=== PATIENT | female | born 1980 | race Caucasian/White ===

== ENCOUNTER 2017-05-28 11:41 | Day surgery (SDC) | payer BC ==
[~2017-05-28 11:41] MED LIST: Lactated Ringers 1,000 ML IV SCH; Midazolam 1 MG/ML 2 ML SDV ONE; Propofol 200 MG/20 ML SDV ONE; fentaNYL 100 MCG/2 ML SDV ONE
--- NOTE | 2017-05-28 12:10 | PCM.PREANE ---
Preanesthetic Assessment - Anesthesia/Transfusion/Family Hx Anesthesia History: Prior Anesthesia Without Reaction Other Type of Anesthesia Reaction Comment: DENIES ANY PROBLEMS WITH ANESTHESIA Family History of Anesthesia Reaction: No Transfusion History: No Prior Transfusion(s) - Review of Systems General: No Symptoms Pulmonary: No Symptoms Cardiovascular: No Symptoms Neurological: No Symptoms Other: Reports: None - Physical Assessment NPO Status Date: 05/27/17 Height: 1.63 m Weight: 102.058 kg ASA Class: 2 Mental Status: Alert & Oriented x3 Airway Class: Mallampati = 1 Dentition: Reports: Normal Dentition ROM/Head Extension: Full Lungs: Clear to Auscultation, Normal Respiratory Effort Cardiovascular: Regular Rate, Regular Rhythm - Allergies Allergies/Adverse Reactions: Allergies Allergy/AdvReac Type Severity Reaction Status Date / Time Penicillins Allergy Unknown Hives Verified 05/25/17 10:56 amoxicillin Allergy Hives Verified 05/25/17 10:56 ethinyl estradiol Allergy Hives Verified 05/25/17 10:56 [From Ortho Tri-Cyclen (28)] norgestimate Allergy Hives Verified 05/25/17 10:56 [From Ortho Tri-Cyclen (28)] - Anesthesia Plan Pre-Op Medication Ordered: None - Acknowledgements Anesthesia Type Planned: MAC Pt an Appropriate Candidate for the Planned Anesthesia: Yes Alternatives and Risks of Anesthesia Discussed w Pt/Guardian: Yes Pt/Guardian Understands and Agrees with Anesthesia Plan: Yes PreAnesthesia Questionnaire HEENT History: Reports: None Cardiovascular History: Reports: None Respiratory History: Reports: None Gastrointestinal History: Reports: GERD, Irritable Bowel Syndrome Other Gastrointestinal History: Heartburn/GERD treat with OTC Zantac and Maalox , prn Genitourinary History: Reports: UTI, Recurrent 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 , , 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 Other OB/BYN History: hx: 7 spontaneous abortions Musculoskeletal History: Reports: Back Pain, Chronic 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, 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 Neurological History: Reports: Seizure, Other (See Below) Other Neuro History: hx of removal of brain tumor in 2004, no seizures since then Psychiatric History: Reports: Anxiety, Depression Endocrine/Metabolic History: Reports: Obesity/BMI 30+, Other (See Below) Other Endocrine/Metabolic History: "prediabetic" Hematologic History: Reports: None Immunologic History: Reports: None Oncologic (Cancer) History: Reports: None Dermatologic History: Reports: Psoriasis, Other (See Below) Other Dermatologic History: acne - Past Surgical History GI Surgical History: Reports: Cholecystectomy, EGD Female Surgical History: Reports: D&C, Other (See Below) Other Female Surgeries/Procedures: laparoscopic exc of ectopic with left S&O Other Neurological Surgeries/Procedures: 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 - SUBSTANCE USE Smoking Status *Q: Current Every Day Smoker Tobacco Use Within Last Twelve Months: Cigarettes Other Tobacco Use Within Last Twelve Months: Trying to Cut back...down to 3-4 cigarettes per day, 15 yrs of smoking Second Hand Smoke Exposure: Yes Days Per Week of Alcohol Use: 0 Number of Drinks Per Day: 0 Total Drinks Per Week: 0 Recreational Drug Use History: No - HOME MEDS Home Medications: Home Meds Clindamycin Phosphate [Cleocin T 1% Gel] 1 applic TOP ASDIRECTED PRN 05/25/17 [ History] Butler Tar [Psoriasin] 1 applic TOP ASDIRECTED PRN 05/25/17 [History] Diclofenac Sodium [Voltaren] 1 applic TOP ASDIRECTED PRN 05/25/17 [History] Etonogestrel [Nexplanon] 1 device IMPLANT ONETIME 05/25/17 [History] Spironolactone 50 mg PO DAILY 05/25/17 [History] Triamcinolone Acetonide [IJD: Triamcinolone Acetonide 0.1% Crm] 1 applic TOP ASDIRECTED 05/25/17 [History] - CURRENT (IN HOUSE) MEDS Current Meds: Current Medications Lactated Ringer's (Ringers, Lactated) 1,000 mls @ 125 mls/hr IV ASDIRECTED [facility], [facility] Last Admin: 05/28/17 12:03 Dose: 125 mls/hr Discontinued Medications Fentanyl (Sublimaze) Confirm Administered Dose 100 mcg .ROUTE .STK-MED ONE Stop: 05/28/17 08:41 Midazolam HCl (Versed 1 Mg/Ml) Confirm Administered Dose 2 mg .ROUTE .STK-MED ONE Stop: 05/28/17 08:41 Propofol (Diprivan 20 Ml) Confirm Administered Dose 200 mg .ROUTE .STK-MED ONE Stop: 05/28/17 08:41
[2017-05-28] MEDS ORDERED: Propofol 200 MG/20 ML SDV ONE (12:24)
--- NOTE | 2017-05-28 12:46 | PCM.OPNOTE ---
- General Post-Op/Procedure Note Date of Surgery/Procedure: 05/28/17 Operative Procedure(s): egd w bx. colonoscopy w random bx Findings: see dict [id number] Pre Op Diagnosis: gerd and abd pain Post-Op Diagnosis: Same Anesthesia Technique: Moderate Sedation Primary Surgeon: Peter Whaley Pathology: egd bx and colon random bx Complications: None Condition: Good
--- NOTE | 2017-05-28 13:00 | PCM.POSTAN ---
POST ANESTHESIA ASSESSMENT - MENTAL STATUS Mental Status: Alert, Oriented - RESPIRATORY Respiratory Status: Respiratory Rate WNL, Airway Patent, O2 Saturation Stable - CARDIOVASCULAR CV Status: Pulse Rate WNL, Blood Pressure Stable - GASTROINTESTINAL GI Status: No Symptoms - POST OP HYDRATION Hydration Status: Adequate & Stable
--- NOTE | 2017-05-28 13:00 | PCM48HPAN ---
Post Anesthesia Note - EVALUATION WITHIN 48HRS OF ANESTHETIC Vital Signs in Normal Range: Yes Patient Participated in Evaluation: Yes Respiratory Function Stable: Yes Airway Patent: Yes Cardiovascular Function Stable: Yes Hydration Status Stable: Yes Pain Control Satisfactory: Yes Nausea and Vomiting Control Satisfactory: Yes Mental Status Recovered: Yes Resp Rate: 17
[2017-05-28 13:46] VITALS: BP 113/57
--- NOTE | 2017-05-28 20:13 | OR ---
SURGEON: Peter Whaley MD DATE OF PROCEDURE: 05/28/2017 PREOPERATIVE DIAGNOSIS: Abdominal pain and gastroesophageal reflux disease. POSTOPERATIVE DIAGNOSES: 1. Esophagogastroduodenoscopy diagnosis: Gastroesophageal reflux disease. 2. Colonoscopy diagnosis: Internal hemorrhoids. PROCEDURE PERFORMED: Esophagogastroduodenoscopy with biopsy and colonoscopy with biopsy. DESCRIPTION OF PROCEDURE: EGD: The patient was taken to the endoscopy room, and with the MANAGER CT, Diprivan was administered. A well-lubricated EGD scope was gently inserted through the oropharynx, down the esophagus, passing through the gastroesophageal junction, into the stomach. The mucosa was examined upon the passage. Any etiology will be noted. Once in the stomach, we continued to advance to the distal antrum, passed through the pylorus into the second portion of the duodenum. Again, the mucosa was examined for any abnormality and etiology. The scope was then retrieved back to the stomach and then retroflexed to look at the fundus of the stomach. If a biopsy was indicated, we will biopsy the antrum, body, and gastroesophageal junction. The air will be sucked out while the scope is retrieved to reduce the patient's discomfort. The patient tolerated the procedure well. There were no intraoperative complications. Dr. Whaley was present through the whole procedure. Prior to surgery, a time-out had been called, the patient identified, procedure identified and antibiotic administered. COLONOSCOPY: The patient was taken to the endoscopy room. A time out was called, patient identified, and procedure identified. Diprivan was then administrated. Patient went from awake to sleep, hearing doctor talking or door closing is normal. Perineum inspection and digital examination were then performed. A well-lubricated colonoscope was gently inserted through the rectum, advanced past the rectosigmoid junction, the descending colon, splenic flexure, transverse colon, hepatic flexure, ascending colon, arrived to the cecum. Cecum was identified as dictated in the finding. Then the scope was carefully withdrawn while attention was paid to the mucosal surface for any abnormality. Air will be sucked out during the scope withdrawal. At the rectum, retroflexed to examine any rectal diseases, fistula or hemorrhoids. During mucosal examination, picture taken and biopsy performed. Patient tolerated procedure well. There were no intraoperative complications, and Dr. Whaley was present throughout the whole procedure. EGD FINDINGS: 1. The patient is easily sedated with MANAGER CT and Diprivan. The patient is soundly snoring. 2. Oropharynx and proximal esophagus are free of disease, inflammation, or stricture; and distal esophagus at the GE junction at 35 shows a mild salmon-colored change consistent with acid reflux and GERD. Stomach rugae are normal in appearance and there is bile in the stomach and no blood or food particle. Antrum is mildly inflamed. Duodenum is grossly normal in appearance. The scope retrieved back to the stomach and retroflexed to look at the fundus of the stomach. There was no hiatal hernia. Biopsy done at antrum, body, GE junction at 40, and sucked out the air while scope pulling out. COLONOSCOPY FINDINGS: 1. The patient is easily sedated with MANAGER CT and Diprivan. The patient is soundly snoring. 2. Bowel prep is average with a moderate amount of liquid stool compromised the study requiring constant irrigation. Colon rather straight forward. Cecum indicated by ileocecal fold, one-to-one indentation, and appendiceal orifice. Light emittance is not observed. Mucosa examined upon scope pulling out. Random biopsy was done for abdominal pain. The patient does have internal hemorrhoids, no external hemorrhoids. No diverticulosis, polyp, mass, growth, inflammation, AV malformation, blood, ulceration, none of those. The patient would benefit from a repeat colonoscopy 10 years from today or if biopsy turned otherwise or clinically indicated otherwise. FRANK / FAY /[id number] DENISE
== END 2017-05-28 13:10 | disposition home or self-care (01) ==
LOC: MW.SDS 11:41
PROVIDERS: ATTEND Surgery
DX: K29.50 Unspecified chronic gastritis without bleeding (principal); K20.9 Esophagitis, unspecified; K64.8 Other hemorrhoids; K58.9 Irritable bowel syndrome, unspecified; J30.9 Allergic rhinitis, unspecified; F41.9 Anxiety disorder, unspecified; F32.9 Major depressive disorder, single episode, unspecified; R73.03 Prediabetes; L40.9 Psoriasis, unspecified; E66.9 Obesity, unspecified; Z68.38 Body mass index [BMI] 38.0-38.9, adult; Z79.899 Other long term (current) drug therapy; Z88.0 Allergy status to penicillin; Z88.1 Allergy status to other antibiotic agents; Z88.8 Allergy status to other drugs, medicaments and biological substances; Z90.49 Acquired absence of other specified parts of digestive tract; Z90.721 Acquired absence of ovaries, unilateral; Z98.890 Other specified postprocedural states
CPT/HCPCS: 43239; 45380; 81025; 88305; 88312; J2250; J3010; J7120; 00813; J2704

== ENCOUNTER 2019-01-20 06:47 | Emergency (ER) | payer BC ==
[2019-01-20] MEDS ORDERED: Lidocaine 1% with EPINEPHrine 1:100,000 10 ML MDV INJECT ONE (07:34)
[2019-01-20] MEDS ORDERED: Lidocaine 1% with EPINEPHrine 1:100,000 20 ML MDV INJECT ONE (07:37)
[2019-01-20] MEDS ORDERED: Ertapenem 1 GM Vial IM SCH (07:45)
--- NOTE | 2019-01-20 08:14 | EDM.PDOC ---
ED HPI GENERAL MEDICAL PROBLEM - General Chief Complaint: Skin Complaint Stated Complaint: BOIL UNDER LEFT ARMPIT Time Seen by Provider: 01/20/19 08:14 Source of Information: Reports: Patient - History of Present Illness INITIAL COMMENTS - FREE TEXT/NARRATIVE: HISTORY AND PHYSICAL: History of present illness: [Patient presents with abscess and cellulitis in the left axilla area, small area of induration 3-4 cm in diameter with central exudate, exudate expressed with lateral pressure culture obtained, cellulitis was demarcated approximately palm size no fever nausea vomiting chills sweats pain is 8 out of 10] Review of systems: As per history of present illness and below otherwise all systems reviewed and negative. Past medical history: As per history of present illness and as reviewed below otherwise noncontributory. Surgical history: As per history of present illness and as reviewed below otherwise noncontributory. Social history: No reported history of drug or alcohol abuse. Family history: As per history of present illness and as reviewed below otherwise noncontributory. Physical exam: HEENT: Atraumatic, normocephalic, pupils reactive, negative for conjunctival pallor or scleral icterus, mucous membranes moist, throat clear, neck supple, nontender, trachea midline. Lungs: Clear to auscultation, breath sounds equal bilaterally, chest nontender. Heart: S1S2, regular, negative for clicks, rubs, or JVD. Abdomen: Soft, nondistended, nontender. Negative for masses or hepatosplenomegaly. Negative for costovertebral tenderness. Pelvis: Stable nontender. Genitourinary: Deferred. Rectal: Deferred. Extremities: Atraumatic, negative for cords or calf pain. Neurovascular unremarkable. Neuro: Awake, alert, oriented. Cranial nerves II through XII unremarkable. Cerebellum unremarkable. Motor and sensory unremarkable throughout. Exam nonfocal. In as per history of present illness otherwise unremarkable Diagnostics: [Culture wound ] Therapeutics: [Invanz Bactrim [place] Compress ] Impression: [ assessment cellulitis left axilla post drainage ] Definitive disposition and diagnosis as appropriate pending reevaluation and review of above. Left Arm Pain Score (Numeric/FACES): 6 - Related Data Allergies Allergy/AdvReac Type Severity Reaction Status Date / Time Penicillins Allergy Unknown Hives Verified 01/20/19 06:59 amoxicillin Allergy Hives Verified 01/20/19 06:59 ethinyl estradiol Allergy Hives Verified 01/20/19 06:59 [From Ortho Tri-Cyclen (28)] norgestimate Allergy Hives Verified 01/20/19 06:59 [From Ortho Tri-Cyclen (28)] Home Meds: Home Meds Clindamycin Phosphate [Cleocin T 1% Gel] 1 applic TOP ASDIRECTED PRN 05/25/17 [ History] Etonogestrel [Nexplanon] 1 device IMPLANT ONETIME 05/25/17 [History] Spironolactone 50 mg PO DAILY 05/25/17 [History] Triamcinolone Acetonide [IJD: Triamcinolone Acetonide 0.1% Crm] 1 applic TOP ASDIRECTED 05/25/17 [History] Past Medical History HEENT History: Reports: None Cardiovascular History: Reports: None Respiratory History: Reports: None Gastrointestinal History: Reports: GERD, Irritable Bowel Syndrome Other Gastrointestinal History: Heartburn/GERD treat with OTC Zantac and Maalox , prn Genitourinary History: Reports: UTI, Recurrent 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 , , 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 Musculoskeletal History: Reports: Back Pain, Chronic 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, 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 Neurological History: Reports: Seizure, Other (See Below) Other Neuro History: hx of removal of brain tumor in 2004, no seizures since then Psychiatric History: Reports: Anxiety, Depression Endocrine/Metabolic History: Reports: Obesity/BMI 30+, Other (See Below) Other Endocrine/Metabolic History: "prediabetic" Hematologic History: Reports: None Immunologic History: Reports: None Oncologic (Cancer) History: Reports: None Dermatologic History: Reports: Psoriasis, Other (See Below) Other Dermatologic History: acne - Infectious Disease History Infectious Disease History: Reports: Chicken Pox - Past Surgical History GI Surgical History: Reports: Cholecystectomy, EGD Female Surgical History: Reports: D&C, Other (See Below) Other Female Surgeries/Procedures: laparoscopic exc of ectopic with left S&O Other Neurological Surgeries/Procedures: 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 Social & Family History - Tobacco Use Smoking Status *Q: Current Every Day Smoker Years of Tobacco use: 24 Packs/Tins Daily: 0.7 ED ROS GENERAL - Review of Systems Review Of Systems: See Below ED EXAM, SKIN/RASH Exam: See Below Course - Vital Signs Last Recorded V/S: Last Vital Signs Temp 96.7 F 01/20/19 06:56 Pulse 103 H 01/20/19 06:56 Resp 16 01/20/19 06:56 BP 166/109 H 01/20/19 06:56 Pulse Ox 97 01/20/19 06:56 - Orders/Labs/Meds Orders: Active Orders 24 hr Category Date Time Status CULTURE WOUND [RM] Stat Lab 01/20/19 07:40 Received Ertapenem [INVanz] Med 01/20/19 07:45 Active 1 gm IM Q24H Medication Orders Ertapenem (Invanz) 1 gm IM Q24H CHARMAINE Last Admin: 01/20/19 07:56 Dose: 1 gm Meds: Medications Generic Name Dose Route Start Last Admin Trade Name Freq PRN Reason Stop Dose Admin Ertapenem 1 gm 01/20/19 07:45 01/20/19 07:56 Invanz IM 1 gm Q24H CHARMAINE Administration Discontinued Medications Generic Name Dose Route Start Last Admin Trade Name Freq PRN Reason Stop Dose Admin Sterile Water Confirm 01/20/19 07:47 01/20/19 07:56 Sterile Water For Injection Administered 01/20/19 07:48 Not Given Dose 20 mls @ as directed .ROUTE .STK-MED ONE Lidocaine HCl 5 ml 01/20/19 07:48 01/20/19 07:56 Xylocaine-Mpf 1% INJECT 01/20/19 07:49 5 ml ONETIME ONE Administration Lidocaine/Epinephrine 10 ml 01/20/19 07:34 01/20/19 07:40 Xylocaine 1% With Epinephrine 1:100,000 INJECT 01/20/19 07:35 Not Given ONETIME ONE Lidocaine/Epinephrine 20 ml 01/20/19 07:37 01/20/19 07:42 Xylocaine 1% With Epinephrine 1:100,000 INJECT 01/20/19 07:38 Not Given ONETIME ONE Departure - Departure Time of Disposition: 08:16 Disposition: Home, Self-Care 01 Condition: Good Clinical Impression: Abscess, Cellulitis - Discharge Information Referrals: Angie Roberts DO [Primary Care Provider] - Forms: ED Department Discharge Additional Instructions: medication as prescribed Return if symptoms persist or worsen Note for [address] [facility] [address] [place] [id number] The following information is given to patients seen in the emergency department who are being discharged to home. This information is to outline your options for follow-up care. We provide all patients seen in our emergency department with a follow-up referral. The need for follow-up, as well as the timing and circumstances, are variable depending upon the specifics of your emergency department visit. If you don't have a primary care physician on staff, we will provide you with a referral. We always advise you to contact your personal physician following an emergency department visit to inform them of the circumstance of the visit and for follow-up with them and/or the need for any referrals to a consulting specialist. The emergency department will also refer you to a specialist when appropriate. This referral assures that you have the opportunity for follow-up care with a specialist. All of these measure are taken in an effort to provide you with optimal care, which includes your follow-up. Under all circumstances we always encourage you to contact your private physician who remains a resource for coordinating your care. When calling for follow-up care, please make the office aware that this follow-up is from your recent emergency room visit. If for any reason you are refused follow-up, please contact the [facility] emergency department at and asked to speak to the emergency department charge nurse. Sepsis Event Note - Evaluation Sepsis Screening Result: No Definite Risk - Focused Exam Vital Signs: Vital Signs Temp Pulse Resp BP Pulse Ox 01/20/19 06:56 96.7 F 103 H 16 166/109 H 97 Date Exam was Performed: 01/20/19 Time Exam was Performed: 08:15 - My Orders Last 24 Hours: My Active Orders 01/20/19 07:40 CULTURE WOUND [RM] Stat 01/20/19 07:45 Ertapenem [INVanz] 1 gm IM Q24H - Assessment/Plan Last 24 Hours: My Active Orders 01/20/19 07:40 CULTURE WOUND [RM] Stat 01/20/19 07:45 Ertapenem [INVanz] 1 gm IM Q24H
[2019-01-20 08:39] VITALS: BP 146/83; PULSE 86
== END 2019-01-20 08:40 | disposition home or self-care (01) ==
LOC: MW.ED 06:47
DX: L02.412 Cutaneous abscess of left axilla (principal); L03.112 Cellulitis of left axilla; E66.9 Obesity, unspecified; Z68.38 Body mass index [BMI] 38.0-38.9, adult; F17.210 Nicotine dependence, cigarettes, uncomplicated; Z88.0 Allergy status to penicillin; Z88.1 Allergy status to other antibiotic agents; Z88.8 Allergy status to other drugs, medicaments and biological substances; Z79.899 Other long term (current) drug therapy
CPT/HCPCS: 87070; 87077; 87186; 96372; 99283; J1335; J2001

== ENCOUNTER 2019-01-21 21:04 | Emergency (ER) | payer BC ==
[2019-01-21] MEDS ORDERED: Lidocaine 1% with EPINEPHrine 1:100,000 20 ML MDV INJECT ONE (21:26)
--- NOTE | 2019-01-21 21:32 | EDM.PDOC ---
ED HPI GENERAL MEDICAL PROBLEM - General Chief Complaint: Skin Complaint Stated Complaint: BOIL ENLARGED Time Seen by Provider: 01/21/19 21:19 - History of Present Illness INITIAL COMMENTS - FREE TEXT/NARRATIVE: HISTORY AND PHYSICAL: History of present illness: Patient is a 38-year-old female who was seen here in the emergency department a day and a half ago for an oval sized area of abscess which was self treating and a surrounding cellulitis. The patient was given Invanz here in the ED and sent home on Bactrim and returns tonight because she is concerned about the area of pinkish erythema but is now seems to be expanding inferiorly from the marked area by the provider. She says that the wound has been draining and she has been putting warm compresses on it and she is not concerned about that but she is more concerned about the increase in the pinkish erythema. She has no systemic complaints such as fever chills shortness of breath coughing and no other lesions or skin changes. She says she is compliant with her antibiotics Review of systems: As per history of present illness and below otherwise all systems reviewed and negative. Past medical history: As per history of present illness and as reviewed below otherwise noncontributory. Surgical history: As per history of present illness and as reviewed below otherwise noncontributory. Social history: No reported history of drug or alcohol abuse. Family history: As per history of present illness and as reviewed below otherwise noncontributory. Physical exam: General: Well-developed well-nourished overweight female who is nontoxic and vital signs are noted by me HEENT: Atraumatic, normocephalic, negative for conjunctival pallor or scleral icterus, mucous membranes moist, throat clear, neck supple, nontender, trachea midline. Lungs: Clear to auscultation, breath sounds equal bilaterally, chest nontender. Heart: S1S2, regular, negative for clicks, rubs, or JVD. Abdomen: Soft, nondistended, nontender. Negative for masses or hepatosplenomegaly. Pelvis: Stable nontender. Genitourinary: Deferred. Rectal: Deferred. Extremities: Atraumatic range of motion of all extremities. At the left axillary area there is an indurated area which is similar in size to the provider's note of yesterday, measuring 3 x 4 cm with a small central area of fluctuance with some scant drainage appreciated which is cloudy. There is surrounding erythema which extends inferiorly down the volar aspect of the upper arm and seems slightly larger than the marked area of the day and a half ago. There is no axillary adenopathy and the compartment is soft. There is minimal tenderness with deep palpation of this area in the axilla. She has full range of motion of this left upper extremity without defects or deformities. The legs are, negative for cords or calf pain. Neurovascular unremarkable. Neuro: Awake, alert, oriented. Cranial nerves II through XII unremarkable. Cerebellum unremarkable. Motor and sensory unremarkable throughout. Exam nonfocal. Diagnostics: [] Therapeutics: lidocane with epinephrine for I&D, the new pinkish area of erythema was marked by me. Procedure note: After the procedure was re-explained to the patient the area was prepped and draped and 1% lidocaine with epinephrine was infused into the fluctuant area of the abscess. Using an 11 blade a puncture stab was made and pus was expressed. An iodoform gauze was placed and there were no complications. Dressing was placed by nursing. Patient tolerated the procedure well Impression: Axillary abscess/cellulitis Definitive disposition and diagnosis as appropriate pending reevaluation and review of above. left axilla Pain Score (Numeric/FACES): 4 - Related Data Allergies Allergy/AdvReac Type Severity Reaction Status Date / Time Penicillins Allergy Unknown Hives Verified 01/21/19 21:18 amoxicillin Allergy Hives Verified 01/21/19 21:18 ethinyl estradiol Allergy Hives Verified 01/21/19 21:18 [From Ortho Tri-Cyclen (28)] norgestimate Allergy Hives Verified 01/21/19 21:18 [From Ortho Tri-Cyclen (28)] Home Meds: Home Meds Etonogestrel [Nexplanon] 1 device IMPLANT ONETIME 05/25/17 [History] Spironolactone 50 mg PO DAILY 05/25/17 [History] Triamcinolone Acetonide [IJD: Triamcinolone Acetonide 0.1% Crm] 1 applic TOP ASDIRECTED 05/25/17 [History] Past Medical History HEENT History: Reports: None Cardiovascular History: Reports: None Respiratory History: Reports: None Gastrointestinal History: Reports: GERD, Irritable Bowel Syndrome Other Gastrointestinal History: Heartburn/GERD treat with OTC Zantac and Maalox , prn Genitourinary History: Reports: UTI, Recurrent [employer] History: Reports: Ectopic , Polycystic Ovaries, , Spontaneous Other [employer] History: hx: 7 spontaneous abortions Musculoskeletal History: Reports: Back Pain, Chronic 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, 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 Neurological History: Reports: Seizure, Other (See Below) Other Neuro History: hx of removal of brain tumor in 2004, no seizures since then Psychiatric History: Reports: Anxiety, Depression Endocrine/Metabolic History: Reports: Obesity/BMI 30+, Other (See Below) Other Endocrine/Metabolic History: "prediabetic" Hematologic History: Reports: None Immunologic History: Reports: None Oncologic (Cancer) History: Reports: None Dermatologic History: Reports: Psoriasis, Other (See Below) Other Dermatologic History: Hidradenitis Suppurative - Infectious Disease History Infectious Disease History: Reports: Chicken Pox - Past Surgical History GI Surgical History: Reports: Cholecystectomy, EGD Female Surgical History: Reports: D&C, Other (See Below) Other Female Surgeries/Procedures: laparoscopic exc of ectopic with left S&O Other Neurological Surgeries/Procedures: 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 ED EXAM, GENERAL - Physical Exam Exam: See Below (see dictation) Course - Vital Signs Last Recorded V/S: Last Vital Signs Temp 36.1 C 01/21/19 21:10 Pulse 87 01/21/19 21:10 Resp 18 01/21/19 21:10 BP 150/90 H 01/21/19 21:10 Pulse Ox 98 01/21/19 21:10 - Orders/Labs/Meds Meds: Medications Discontinued Medications Generic Name Dose Route Start Last Admin Trade Name Freq PRN Reason Stop Dose Admin Lidocaine/Epinephrine 20 ml 01/21/19 21:26 Xylocaine 1% With Epinephrine 1:100,000 INJECT 01/21/19 21:27 ONETIME ONE Departure - Departure Time of Disposition: 21:41 Disposition: Home, Self-Care 01 Condition: Good Clinical Impression: Abscess Cellulitis Qualifiers: Site of cellulitis: extremity Site of cellulitis of extremity: axilla Laterality: left Qualified Code(s): L03.112 - Cellulitis of left axilla - Discharge Information Referrals: PCP,None [Primary Care Provider] - Forms: ED Department Discharge Additional Instructions: The following information is given to patients seen in the emergency department who are being discharged to home. This information is to outline your options for follow-up care. We provide all patients seen in our emergency department with a follow-up referral. The need for follow-up, as well as the timing and circumstances, are variable depending upon the specifics of your emergency department visit. If you don't have a primary care physician on staff, we will provide you with a referral. We always advise you to contact your personal physician following an emergency department visit to inform them of the circumstance of the visit and for follow-up with them and/or the need for any referrals to a consulting specialist. The emergency department will also refer you to a specialist when appropriate. This referral assures that you have the opportunity for followup care with a specialist. All of these measure are taken in an effort to provide you with optimal care, which includes your followup. Under all circumstances we always encourage you to contact your private physician who remains a resource for coordinating your care. When calling for followup care, please make the office aware that this follow-up is from your recent emergency room visit. If for any reason you are refused follow-up, please contact the [facility] emergency department at and ask to speak to the emergency department charge nurse. [facility]- [place] [address] Expect drainage from the area and continue with the antibiotics you're currently taking. Please leave the pack that was placed in the ED in place for the next 24-36 hours and then you need to be seen in the emergency department to have the pack removed and potentially repacked and reevaluated. Continue to monitor the area of redness and it should begin to shrink over the next 24 hours . Keep the wound clean and dry and cleanse with mild soap and water. Return to ER sooner as needed and as discussed Sepsis Event Note - Evaluation Sepsis Screening Result: No Definite Risk - Focused Exam Vital Signs: Vital Signs Temp Pulse Resp BP Pulse Ox 01/21/19 21:10 36.1 C 87 18 150/90 H 98 Date Exam was Performed: 01/21/19 Time Exam was Performed: 21:40
[2019-01-21 22:03] VITALS: BP 152/104; PULSE 82
== END 2019-01-21 21:55 | disposition home or self-care (01) ==
LOC: MW.ED 21:04
DX: L02.412 Cutaneous abscess of left axilla (principal); L03.112 Cellulitis of left axilla; E66.9 Obesity, unspecified; F17.210 Nicotine dependence, cigarettes, uncomplicated; Z88.0 Allergy status to penicillin; Z88.8 Allergy status to other drugs, medicaments and biological substances
CPT/HCPCS: 10060; 99282; 99283